=== PATIENT | female | born 1955 | race Caucasian/White ===

== ENCOUNTER → 2016-04-28 | Outpatient (CLI) | payer OTHER ==
--- NOTE | 2016-04-28 10:32 | MA ---
Screening Digital Mammogram with Digital Breast Tomosynthesis Clinical Indications: Routine screening. Previous breast cancer on the right. Atypical lobular hyperp lasia on the left with previous lumpectomy. Technique: Standard cephalocaudal projections are obtained. Digital breast tomosynthesis was perform ed in the MLO projection with reconstruction at 1.0 mm slice thickness and composite MLO views recons tructed. This examination is processed by the CAD computer aided detection system. Comparison: April 30, 2015; May 01, 2014; and studies dating back to March 01, 2013. Breast density: C; The breasts are heterogeneously dense, which may obscure small masses. Findings: CAD was reviewed. There are no new masses, new clusters of microcalcifications, or significant axillary lymphadenopathy . There is some architectural distortion deep central left breast from previous lumpectomy. There is also some scarring within the lower outer right breast from previous lumpectomy for breast cancer. Impression: Benign findings. BI-RADS 2. Recommendation: Routine screening mammogram is recommended in one year. Dense mammographic pattern limits the sensitivity of mammography in this patient. If there is a clini kristen palpable abnormality, recommend additional imaging with ultrasound if clinically indicated. [facility] will send a result letter to the patient. Negative mammography should not preclude additional workup of a clinically suspicious finding. The patient's information is entered into a reminder system with a target due date for her next mammo gram.
== END ==
LOC: FIMAGING 09:37
DX: Z12.31 Encounter for screening mammogram for malignant neoplasm of breast (principal); Z85.3 Personal history of malignant neoplasm of breast
CPT/HCPCS: G0202

== ENCOUNTER 2017-03-07 13:43 | Emergency (ER) | payer OTHER ==
[2017-03-07 13:54] VITALS: BP 156/98; PULSE 97; RESP 16; O2SAT 93
[2017-03-07 13:58] VITALS: TEMP 98.6
--- NOTE | 2017-03-07 13:59 | EDPHY ---
H & P Stated Complaint: [place] ~ 1250 Time Seen by Provider: 03/07/17 13:48 HPI/ROS: Chief Complaint: Dog bite HPI: 61-year-old woman was walking when she approached a friendly appearing dog with its owner consulting engineer. The dog lunged bit on the left forearm. She sustained a single laceration. She has not sustained any other injuries. She did not fall. She is not up-to-date in her tetanus but is declining booster at this time. She does not know the dog. Does not know the owner consulting engineer. Animal control has not been notified. She does have contact information to get in touch with the dog owner consulting engineer. ROS: 10 point Review of Systems is negative except as noted in the HPI. PMH: Breast cancer Social History: [No] smoking Family History: [non-contributory] Physical Exam: General: Awake, alert, no acute distress Left arm: She has a 1 cm laceration on the radial aspect of the dorsal left forearm. This does not extend into the deep tissue. She has soft compartments. No bony tenderness. No compartment all tenderness. No swelling. 2+ radial ulnar pulses. Sensation is intact in the radial, median, and ulnar nerve distribution. Skin: No rash - Personal History Current Tetanus/Diphtheria Vaccine: No Current Tetanus Diphtheria and Acellular Pertussis (TDAP): No - Medical/Surgical History Hx Asthma: No Hx Chronic Respiratory Disease: No Hx Diabetes: No Hx Cardiac Disease: Yes Other PMH: tonsilectomy. breast ca - Social History Smoking Status: Former smoker Constitutional: Initial Vital Signs Temperature (C) 37 C 03/07/17 13:49 Heart Rate 97 03/07/17 13:49 Respiratory Rate 16 03/07/17 13:49 Blood Pressure 156/98 H 03/07/17 13:49 O2 Sat (%) 93 03/07/17 13:49 O2 Delivery Mode Room Air Allergies/Adverse Reactions: No Known Allergies Allergy (Unverified 03/07/17 13:52) Home Medications: Medication Instructions Recorded Aspirin EC 81 mg (*) 03/07/17 Medical Decision Making ED Course/Re-evaluation: Patient has a dog bite to the forearm. I have explored this with a probe. I have been able to reach the bottom. He has been copiously irrigated. It was closed with Steri-Strips by myself. Given the animal bite that was not gaping or largest below for drainage in prevent possibility of infection. I expect good healing results from this. She will follow up with primary care physician in several days for wound check. She has been given precautions to return for worsening. Departure - Departure Disposition: Home, Routine, Self-Care Clinical Impression: Dog bite Condition: Good Instructions: Animal Bite (ED), Laceration Without Closure (ED) Additional Instructions: Follow up with primary care physician in 3-4 days for wound check. Return to the emergency department for redness, streaking up your arm, discharge from the wound, fevers, chills, or any other concerns. Referrals: Ar Bloom MD [Primary Care Provider] - As per Instructions
== END 2017-03-07 14:50 | disposition home or self-care (01) ==
LOC: CED 13:43
DX: S51.852A Open bite of left forearm, initial encounter (principal); Z85.3 Personal history of malignant neoplasm of breast; Z87.891 Personal history of nicotine dependence; W54.0XXA Bitten by dog, initial encounter

== ENCOUNTER 2017-03-08 14:21 | Emergency (ER) | payer OTHER | END 2017-03-08 14:43 | disposition left against medical advice (07) | DX: Z53.21 Procedure and treatment not carried out due to patient leaving prior to being seen by health care provider (principal) ==

== ENCOUNTER 2017-03-08 15:04 | Emergency (ER) | payer OTHER ==
[2017-03-08 15:16] VITALS: BP 160/97; PULSE 91; RESP 18; TEMP 98.6; O2SAT 97
[2017-03-08] MEDS ORDERED: ERTAPENEM 1 GM in NS 100 ML IV ONE (15:22)
[2017-03-08] MEDS ORDERED: KETOROLAC 15 MG/1 ML SDV IVP ONE (15:24)
[2017-03-08] MEDS ORDERED: ONDANSETRON 4 MG/2 ML VIAL IVP ONE (15:35)
--- NOTE | 2017-03-08 15:36 | EDPHY ---
H & P Time Seen by Provider: 03/08/17 15:09 HPI/ROS: This patient complains of redness to her arm proximal to dog bite that occurred yesterday. She was seen here in the emergency department and had thorough wound irrigation with Steri-Strips placed to 1 cm wound to the dorsum of her left forearm. Per Dr. Hoff note the base of the wound was easily probed there is no deep tissue injury. The patient noticed increasing pain to the site with proximal lymphangitic streaking extended beyond the bandage at around 1:30 a.m. this afternoon the prompted her visit for further evaluation. She reports that she has 3 or 4/10 ache at baseline that increases with movement to 8/10 pain. She notes no other exacerbating factors. She reports no other symptoms except for mild anorexia and nausea. Her last meal was breakfast this morning and she did not have lunch due to the ongoing anorexia and nausea. The patient is accompanied by her who drove her here by private vehicle for further evaluation. ROS: No high fevers or chills. However she has been taking ibuprofen 600 mg every 6 hours-last dose at 9:30 a.m. no other constitutional symptoms. Integumentary: Redness on the arm with lymphangitic streaking as per HPI. Otherwise negative. No significant drainage from the wound. Neuro: No numbness or tingling GI: Nausea but no vomiting. 7 point ROS is otherwise negative. Smoking Status: Former smoker Physical Exam: Physical Exam Vital signs are normal. General: No acute distress Eyes: Pupils equal and react to light. Extraocular motions are intact. Lungs: No respiratory distress. Cardiac: Brisk capillary refill is intact throughout. Pulses are 2+ and symmetric in the affected extremity. Skin: The patient has a hand size area of erythema to the dorsum of the left forearm 5th surrounding the 1 cm laceration with lymphangitic streaking that extends up to the proximal forearm dorsally. There is associated warmth to touch. No fluctuance. There is trace serous drainage with minimal purulence Neuro: Alert and oriented x3 with no sensorimotor deficits. Constitutional: Initial Vital Signs Temperature (C) 37.0 C 03/08/17 15:09 Heart Rate 91 03/08/17 15:09 Respiratory Rate 18 03/08/17 15:09 Blood Pressure 160/97 H 03/08/17 15:09 O2 Sat (%) 97 03/08/17 15:09 O2 Delivery Mode Room Air Allergies/Adverse Reactions: No Known Allergies Allergy (Unverified 03/07/17 13:52) Home Medications: Medication Instructions Recorded Aspirin EC 81 mg (*) 03/07/17 Amox Tr/K Clav (Augmentin) 500 mg PO TID #30 tab 03/08/17 [Augmentin 500/125 MG TAB (*)] MDM/Departure - MDM Medications Given: Discontinued Medications Ertapenem 1 gm/ Sodium (Chloride) 100 mls @ 200 mls/hr IV EDNOW ONE PRN Reason: Protocol Stop: 03/08/17 15:51 Last Admin: 03/08/17 15:34 Dose: 100 mls Ketorolac Tromethamine (Toradol) 15 mg IVP EDNOW ONE Stop: 03/08/17 15:25 Last Admin: 03/08/17 15:33 Dose: 15 mg Lidocaine (Lidocaine 2% Jelly) 1 kya TP EDNOW ONE Stop: 03/08/17 15:47 Last Admin: 03/08/17 15:55 Dose: 1 kya Ondansetron HCl (Zofran) 4 mg IVP EDNOW ONE Stop: 03/08/17 15:36 Last Admin: 03/08/17 16:25 Dose: Not Given ED Course/Re-evaluation: IV ertapenem Wound care - 2% lidocaine gel was applied after the dressing was removed and the Steri-Strips are removed and a wound culture obtained from trace amount of purulent drainage. Thereafter our tech irrigated the wound with 60 cc of saline under pressure with clear return. The wound was redressed. Discussion: Patient with localized wound infection from dog bite without evidence clinically of sepsis or other concerning findings. She has no immunosuppression or other risks for poor outcome with infection. I Counseled patient regarding warm packs and elevation of the arm with plan to start her on Augmentin antibiotics orally. She understands the need to return should she develop any significant worsening of her symptoms despite the treatment plan. Toradol IV with relief of discomfort down to minimal discomfort - Depart Disposition: Home, Routine, Self-Care Clinical Impression: Dog bite of left forearm with infection Qualifiers: Encounter type: initial encounter Qualified Code(s): S51.852A - Open bite of left forearm, initial encounter Condition: Good Instructions: Animal Bite (ED), Cellulitis (ED) Additional Instructions: Diagnosis: Dog bite with wound infection Plan: Apply warm packs to 3 times a day and elevate arm when possible Clean the wound daily with warm soapy water Continue ibuprofen and Tylenol for discomfort as needed Take Augmentin antibiotic as prescribed Take a probiotic and/or yogurt while on this antibiotic to prevent diarrhea Return emergency department for any significant worsening such as fevers, vomiting, increased discharge from wound or other concerns despite the treatment plan Prescriptions: Amox Tr/K Clav (Augmentin) [Augmentin 500/125 MG TAB (*)] 500 mg PO TID #30 tab Referrals: Ar Bloom MD [Primary Care Provider] - As per Instructions
[2017-03-08 15:38] LABS: % IMMATURE GRANULYOCYTES 0.3 % (0.0-1.1); ABSOLUTE IMMATURE GRANULOCYTES 0.04 10^3/uL (0.00-0.10); ADD DIFF? NO; ADD MORPH? NO; ADD SCAN? NO; ATYPICAL LYMPHOCYTE FLAG 0 (0-99); FRAGMENT RBC FLAG 0 (0-99); HEMATOCRIT 41.9 % (38.0-47.0); HEMOGLOBIN 14.1 g/dL (12.6-16.3); LEFT SHIFT FLG 10 (0-99); LIPEMIA HEMOLYSIS FLAG 80 (0-99); MEAN CELL HEMOGLOBIN 30.8 pg (27.9-34.1); MEAN CELL HEMOGLOBIN CONCENTR. 33.7 g/dL (32.4-36.7); MEAN CELL VOLUME 91.5 fL (81.5-99.8); MEAN PLATELET VOLUME 10.1 fL (8.7-11.7); PLATELET CLUMPS FLAG 0 (0-99); PLATELET COUNT 244 10^3/uL (150-400); RED BLOOD CELL COUNT 4.58 10^6/uL (4.18-5.33); RED CELL DISTRIBUTION WIDTH 14.2 % (11.5-15.2)
[2017-03-08] MEDS ORDERED: LIDOCAINE 2% JELLY 5 ML TUBE TP ONE (15:46)
[2017-03-08 15:54] LABS: ANION GAP 17 mEq/L (8-16); CALCIUM 10.4 mg/dL (8.5-10.4); CARBON DIOXIDE 22 mEq/l (22-31); CHLORIDE 103 mEq/L (97-110); CREATININE 0.9 mg/dL (0.6-1.0); GLOMERULAR FILTRATION RATE > 60; GLUCOSE 93 mg/dL (70-100); POTASSIUM 4.2 mEq/L (3.5-5.2); SODIUM 142 mEq/L (134-144)
== END 2017-03-08 16:37 | disposition home or self-care (01) ==
LOC: CED 15:04
DX: S51.852D Open bite of left forearm, subsequent encounter (principal); Z87.891 Personal history of nicotine dependence; Z79.82 Long term (current) use of aspirin; W54.0XXD Bitten by dog, subsequent encounter
CPT/HCPCS: 80048-PO; 85025-PO; 96365; J1335; J1885

== ENCOUNTER 2017-03-09 09:01 | Emergency (ER) | payer OTHER ==
[2017-03-09] MEDS ORDERED: ERTAPENEM 1 GM in NS 100 ML IV ONE (09:47)
[2017-03-09 10:20] LABS: % IMMATURE GRANULYOCYTES 0.3 % (0.0-1.1); ABSOLUTE IMMATURE GRANULOCYTES 0.04 10^3/uL (0.00-0.10); ADD DIFF? NO; ADD MORPH? NO; ADD SCAN? NO; ATYPICAL LYMPHOCYTE FLAG 0 (0-99); FRAGMENT RBC FLAG 0 (0-99); HEMATOCRIT 41.5 % (38.0-47.0); HEMOGLOBIN 14.2 g/dL (12.6-16.3); LEFT SHIFT FLG 0 (0-99); LIPEMIA HEMOLYSIS FLAG 90 (0-99); MEAN CELL HEMOGLOBIN 31.1 pg (27.9-34.1); MEAN CELL HEMOGLOBIN CONCENTR. 34.2 g/dL (32.4-36.7); MEAN CELL VOLUME 90.8 fL (81.5-99.8); MEAN PLATELET VOLUME 10.3 fL (8.7-11.7); PLATELET CLUMPS FLAG 0 (0-99); PLATELET COUNT 243 10^3/uL (150-400); RED BLOOD CELL COUNT 4.57 10^6/uL (4.18-5.33); RED CELL DISTRIBUTION WIDTH 14.2 % (11.5-15.2)
[2017-03-09 10:22] VITALS: RESP 18
[2017-03-09 10:34] LABS: CALCIUM 10.4 mg/dL (8.5-10.4); POTASSIUM 4.3 mEq/L (3.5-5.2)
[2017-03-09 10:58] VITALS: BP 113/74; PULSE 88; TEMP 99; O2SAT 95
--- NOTE | 2017-03-09 11:16 | EDPHY ---
H & P Time Seen by Provider: 03/09/17 09:47 HPI/ROS: CHIEF COMPLAINT: Dog bite recheck HISTORY OF PRESENT ILLNESS: This is a 61-year-old female presents for her 3rd emergency department visit following a dog bite to the forearm. Patient was bit on the left forearm 2 days ago, March 07. At that time she was seen and evaluated, the wound was cleaned and dressed. She returned the next day, within 24 hours, with erythema and lymphangitic spread on the forearm. [place] [address]. No abscess. Patient received Invanz and was placed on Augmentin 500/125 three times daily. Patient returns today with concerns that the erythema has extended beyond the area demarcated. Her lymphangitic spread has resolved but there is an area near the antecubital fossa which has extended beyond the region saran. She has had no fever. She reports some abdominal upset which may be secondary to the antibiotic. No vomiting. REVIEW OF SYSTEMS: Aside from elements discussed in the HPI, a comprehensive 10-point review of systems was reviewed and is negative. PAST MEDICAL HISTORY: History of breast cancer, tonsillectomy SOCIAL HISTORY: Here with her . Nonsmoker. GENERAL APPEARANCE: Pleasant, alert, no acute distress. FOCUSED EXAM OF left upper extremity: Dog bite site is present on the volar left forearm. Patient has erythema extending from the wrist to 3 cm proximal to the antecubital fossa. Erythema is not circumferential but does extend laterally and medially. There is an area marked over the antecubital fossa where lymphangitic spread have been present, this is not resolved. Erythema extends beyond the region marked near the antecubital fossa, but it has receded at other areas distally. No exudates from the wound. Neurovascular exam: Good capillary refill, normal motor exam, normal neurologic exam. Smoking Status: Former smoker Constitutional: Initial Vital Signs Temperature (C) 36.9 C 03/09/17 09:03 Heart Rate 90 03/09/17 09:03 Respiratory Rate 18 03/09/17 09:03 Blood Pressure 117/76 03/09/17 09:03 O2 Sat (%) 94 03/09/17 09:03 O2 Delivery Mode Room Air Allergies/Adverse Reactions: No Known Allergies Allergy (Unverified 03/09/17 10:03) Home Medications: Medication Instructions Recorded Aspirin EC 81 mg (*) 03/07/17 Amox Tr/K Clav (Augmentin) 500 mg PO TID #30 tab 03/08/17 [Augmentin 500/125 MG TAB (*)] Medical Decision Making ED Course/Re-evaluation: 61 year female returning with concerns regarding ongoing cellulitis. On examination she has areas which are slightly outside the area demarcated and other areas of her cellulitis which have receded. Repeat CBC was drawn and the patient's white count is improving. Given the fact that the infection occurred within the 1st 24 hours of the dog bite, highly suspect pasteurella infection. Patient received an additional IV dose of Invanz. I held a long discussion with the patient and her . We discussed admission to the hospital for failed outpatient therapy. We discussed return to the emergency department in 8-12 hours for re-examination and continue on oral antibiotics. Patient and her are comfortable with the plan for watchful waiting. They do understand that it may take a bit of time after receiving antibiotics to see resection in the cellulitis. They also understand however that if she should worsen in any way, especially if she should develop fevers, vomiting, generalized malaise, increased pain, or other concerns she may return at any point for re-evaluation and most likely admission. Patient was instructed to return to the emergency department prior to 9:00 p.m. tonight for re-evaluation. Differential Diagnosis: Differential diagnoses for the patient's symptom complex was considered including but not limited to cellulitis, abscess, MRSA, MSSA, pasteurella infection, lymphangitis. - Data Points Laboratory Results: Laboratory Results 03/09/17 10:15 03/09/17 10:15 03/09/17 03/09/17 10:15 10:15 WBC 12.36 10^3/uL H 10^3/uL (3.80-9.50) RBC 4.57 10^6/uL 10^6/uL (4.18-5.33) Hgb 14.2 g/dL g/dL (12.6-16.3) Hct 41.5 % % (38.0-47.0) MCV 90.8 fL fL (81.5-99.8) MCH 31.1 pg pg (27.9-34.1) MCHC 34.2 g/dL g/dL (32.4-36.7) RDW 14.2 % % (11.5-15.2) Plt Count 243 10^3/uL 10^3/uL (150-400) MPV 10.3 fL fL (8.7-11.7) Neut % (Auto) 75.8 % H % (39.3-74.2) Lymph % (Auto) 12.3 % L % (15.0-45.0) Reynolds % (Auto) 9.2 % % (4.5-13.0) Eos % (Auto) 1.9 % % (0.6-7.6) Baso % (Auto) 0.5 % % (0.3-1.7) Nucleat RBC Rel Count 0.0 % % (0.0-0.2) Absolute Neuts (auto) 9.36 10^3/uL H 10^3/uL (1.70-6.50) Absolute Lymphs (auto) 1.52 10^3/uL 10^3/uL (1.00-3.00) Absolute Monos (auto) 1.14 10^3/uL H 10^3/uL (0.30-0.80) Absolute Eos (auto) 0.24 10^3/uL 10^3/uL (0.03-0.40) Absolute Basos (auto) 0.06 10^3/uL 10^3/uL (0.02-0.10) Absolute Nucleated RBC 0.00 10^3/uL 10^3/uL (0-0.01) Immature Gran % 0.3 % % (0.0-1.1) Immature Gran # 0.04 10^3/uL 10^3/uL (0.00-0.10) Sodium 142 mEq/L mEq/L (134-144) Potassium 4.3 mEq/L mEq/L (3.5-5.2) Chloride 103 mEq/L mEq/L (97-110) Carbon Dioxide 25 mEq/l mEq/l (22-31) Anion Gap 14 mEq/L mEq/L (8-16) BUN 20 mg/dL mg/dL (7-23) Creatinine 1.0 mg/dL mg/dL (0.6-1.0) Estimated GFR 57 Glucose 105 mg/dL H mg/dL (70-100) Calcium 10.4 mg/dL mg/dL (8.5-10.4) Medications Given: Discontinued Medications Ertapenem 1 gm/ Sodium (Chloride) 100 mls @ 200 mls/hr IV EDNOW ONE PRN Reason: Protocol Stop: 03/09/17 10:16 Last Admin: 03/09/17 10:10 Dose: 100 mls Departure - Departure Disposition: Home, Routine, Self-Care Clinical Impression: Cellulitis of left forearm Dog bite Qualifiers: Encounter type: subsequent encounter Qualified Code(s): W54.0XXD - Bitten by dog, subsequent encounter Condition: Good Instructions: Animal Bite (ED), Cellulitis (ED) Additional Instructions: Please keep the arm elevated today. If you develop a fever, significant erythema extending outside the line, increased pain, nausea or vomiting, generally feeling poorly, other concerns, you may return to the emergency department at any point. Please return to the emergency department this evening before 9:00 p.m. for recheck. Continue to take the Augmentin as directed. Augmentin 500/125 by mouth three times daily. Referrals: NONE *PRIMARY CARE P,. [Primary Care Provider] - As per Instructions
== END 2017-03-09 11:35 | disposition home or self-care (01) ==
LOC: CED 09:01
DX: L03.114 Cellulitis of left upper limb (principal); Z85.3 Personal history of malignant neoplasm of breast; Z87.891 Personal history of nicotine dependence; Z79.82 Long term (current) use of aspirin
CPT/HCPCS: 80048-PO; 85025-PO; 96365; J1335

== ENCOUNTER → 2017-04-29 | Outpatient (CLI) | payer OTHER | LOC: FIMAGING 09:55 | PROVIDERS: ATTEND Internal Medicine Hematology & Oncology | DX: Z12.31 Encounter for screening mammogram for malignant neoplasm of breast (principal); Z85.3 Personal history of malignant neoplasm of breast ==

== ENCOUNTER → 2018-05-03 | Outpatient (CLI) | payer OTHER | LOC: FIMAGING 14:10 | PROVIDERS: ATTEND Internal Medicine Hematology & Oncology | DX: Z12.31 Encounter for screening mammogram for malignant neoplasm of breast (principal) ==

== ENCOUNTER → 2018-07-05 | Outpatient (CLI) | payer OTHER ==
[~2018-07-05] MED LIST: GADOBUTROL 10 ML VIAL IVP ONE
== END ==
LOC: FIMAGING 10:05
PROVIDERS: ATTEND Internal Medicine Hematology & Oncology
DX: H81.49 Vertigo of central origin, unspecified ear (principal); C50.511 Malignant neoplasm of lower-outer quadrant of right female breast; Z17.1 Estrogen receptor negative status [ER-]
CPT/HCPCS: A9585

== ENCOUNTER → 2018-07-12 | Outpatient (CLI) | payer OTHER | LOC: FIMAGING 09:43 | PROVIDERS: ATTEND Internal Medicine Hematology & Oncology | DX: Z13.820 Encounter for screening for osteoporosis (principal); M85.89 Other specified disorders of bone density and structure, multiple sites ==